=== PATIENT | female | born 1975 | race Caucasian/White ===

== ENCOUNTER 2017-04-04 11:33 | Inpatient (IN) | payer SELFPAY ==
[2017-04-04] MEDS: Lactated Ringers 1,000 ML 50 ML IV (11:45)
[2017-04-04 11:52] VITALS: BMI 27.4
[2017-04-04] MEDS: Oxytocin 30 units/NS 500 ml 30 UNITS/500 ML IV.SOLN IV (12:13)
[2017-04-04] MEDS: Oxytocin 30 units/NS 500 ml 30 UNITS/500 ML IV.SOLN 334 UNITS IV (12:14)
[2017-04-04 12:17] LABS: Absolute Neutrophil Count 14.7 X10^3/uL (2.0-7.7); Basophil# 0.01 X10^3/uL; Basophil% 0.1 % (0-1); Hematocrit 35.9 % (37-47); Hemoglobin 11.9 g/dl (12.0-15.0); Mean Corp Hgb Conc 33.1 g/gl (32-36); Mean Corpuscular Hgb 30.8 pg (27.0-32.0); Mean Platelet Vol. 10.7 fl (6.2-12.0); Monocyte# 0.86 X10^3/uL; Monocyte% 5.2 % (0-10); Neutrophil # 14.65 X10^3/uL (2.7-7.7); Neutrophil % 88.5 % (47-70); Platelet Count 236 K/mm3 (150-450); RBC Distribution Width SD 56.6 fl (35.1-43.9); Red Blood Count 3.86 M/mm3 (4.2-5.4); White Blood Count 16.6 K/mm3 (4.4-11.0)
[2017-04-04 12:20] LABS: POSITIVE COUNT NO; POSITIVE DIFFERENTIAL NO; POSITIVE MORPHOLOGY NO
[2017-04-04] MEDS: Oxytocin 30 units/NS 500 ml 30 UNITS/500 ML IV.SOLN 167 UNITS IV (12:34)
[2017-04-04 13:43] LABS: Group B Strep DNA By PCR Negative (Negative); Internal Control PASS; Probe Check PASS; Specimen Processing Control PASS
[2017-04-04 15:06] LABS: Chlamydia Trachomatis by PCR Negative (Negative); Neisserai gonorrhoeae by PCR Negative (Negative); Probe Check PASS; Sample Adequacy Control PASS; Specimen Processing Control PASS
[2017-04-04 15:30] VITALS: BP 106/64; PULSE 80; RESP 18; TEMP 36.6; O2SAT 98
[2017-04-04 20:40] VITALS: BP 103/59; PULSE 70; RESP 18; TEMP 37.3; O2SAT 96
[2017-04-04 23:55] VITALS: BP 113/63; PULSE 64; RESP 18; TEMP 37.1; O2SAT 96
[2017-04-05 03:40] VITALS: BP 108/73; PULSE 66; RESP 18; TEMP 37.2; O2SAT 96
--- NOTE | 2017-04-05 07:09 | PCM.HP.OB ---
(1) Active labor at term Status: Acute (2) malpresentation Status: Acute Qualifiers: malpresentation type: brow Fetus number: single or unspecified fetus Qualified Code(s): O32.3XX0 - Maternal care for face, brow and chin presentation, not applicable or unspecified (3) Late care Status: Acute (4) Grand multipara in labor Status: Acute (5) History of stillbirth in currently patient Status: Acute History Date of Admission: 04/04/17 Gestational age: 40.6 History of this : 41 yo @ 40w6 received care by a carpet floor layer apprentice in the community and presented after pushing for 4 1/2 hours at a birthing center. she has a complicated by a previous stillbirth due to abruption at term but otherwise no complications Allergies No Known Allergies Allergy (Verified 04/04/17 13:18) Current Medications Acetaminophen (Tylenol) 1,000 mg PO Q8H PRN PRN PRN Reason: MILD PAIN (1-3/10)/Temp>99.6F Bisacodyl (Dulcolax) 10 mg RECTAL UD PRN PRN Reason: If no BM Lactated Ringer's () 1,000 mls @ 0 mls/hr IV .Q0M MAYLIN PRN Reason: KVO Methylergonovine Maleate (Methergine) 0.2 mg IM X1 PRN PRN Reason: Excess bleeding/uterine atony Naproxen (Naprosyn) 250 - 500 mg PO Q8H PRN PRN PRN Reason: MILD PAIN (1-3/10) Ondansetron HCl (Zofran) 4 mg IV Q8H PRN PRN PRN Reason: Nausea Oxycodone HCl (Oxyir) 5 - 10 mg PO Q4H PRN PRN PRN Reason: MOD-SEVERE PAIN (4-10/10) Senna/Docusate Sodium (Senokot-S, Roxanna-Colace) 1 - 2 tablet PO DAILY PRN PRN PRN Reason: Constipation Simethicone (Mylicon) 80 mg PO PCHS PRN PRN Reason: Indigestion/Stomach pain Zolpidem Tartrate (Ambien (Generic)) 5 mg ORAL QHS PRN PRN PRN Reason: Insomnia Smoking Status: Never smoker Alcohol: None Drug Use: none Number of Fetus(es): 1 - fht 140s moderate variability reactive mild variable occasional toco q 9-12 Review of Systems Constitutional: Denies: Chills, Fever, Weight Change HEENT: Denies: Head Aches, Sinus Congestion, Sinus Drainage Cardiovascular: Denies: Chest Pain, Palpitations Respiratory: Denies: Cough, Shortness of breath at rest, Sputum production Gastrointestinal: Reports: Abdominal Pain, Nausea. Denies: Vomiting Genitourinary: Denies: Dysuria Musculoskeletal: Denies: Joint Pain, Joint Tenderness Skin: Denies: Rash, Wounds Neurological: Denies: Numbness, Tingling, Focal weakness Psychiatric: Denies: Anxiety, Depression, Homicidal Ideations, Suicidal Ideations Hematologic/ Lymphatic: Denies: Easy Bruising, Easy Bleeding Physical Exam Vitals: Vital Signs Temp Pulse Resp BP Pulse Ox 99.0 F 66 18 108/73 96 04/05/17 03:40 04/05/17 03:40 04/05/17 03:40 04/05/17 03:40 04/05/17 03:40 General: Alert, Oriented x3, No apparent distress Cardiovascular: Regular rate Lungs: Normal air movement Abdomen: Gravid, Appropriate for Gestational Age Estimated gestational size: Appropriate for gestational size Presentation: Cephalic Cervix Dilation (cm): 10 Station: -2 Effacement (%): 100 Assessment/Plan Active and Suspected Problems Active labor at term (Acute) malpresentation (Acute) Late care (Acute) Grand multipara in labor (Acute) History of stillbirth in currently patient (Acute) 41 yo @ 40w6d IAL malpresentation arrest of descent prolonged second stage start pitocin, draw labs only essential for pediatrics and indicated for health of mother
--- NOTE | 2017-04-05 07:20 | PCM.OB.VAG ---
(1) Active labor at term Status: Acute (2) malpresentation Status: Acute Qualifiers: malpresentation type: brow Fetus number: single or unspecified fetus Qualified Code(s): O32.3XX0 - Maternal care for face, brow and chin presentation, not applicable or unspecified (3) Late care Status: Acute (4) Grand multipara in labor Status: Acute (5) History of stillbirth in currently patient Status: Acute Vaginal Delivery Maternal Presentation: Active Labor 41 yo presents at 40w6d IAL s/p pushing 4 1/2 hours [facility] and diagnosed with malpresentation Amniotic Membrane Rupture Type: Spontaneous at home Amniotic Fluid Description: Clear Final GEO: 03/29/17 Gestational age: 41 Weeks and 0 Days Date of Procedure: 04/04/17 Pre-Operative Diagnosis: ial prolonged second stage Post-Operative Diagnosis: same plus brow prsentation Surgery/ Procedure Performed: Spontaneous Vaginal Delivery Type of Anesthesia: None Description of Procedure: patient began pushing and a brow presentation was identified and the head was flexed to change position and the head converted to ROP and then with pushing rotated to mane and patient delivered with the next contraction. shoulders delivered afterwards and infant placed on maternal abdomen, delayed cord clamping employed. palcenta delivered intact spontaneously immediately following Presentation: MANE Placental Delivery Description: Spontaneous Placenta Disposition: [facility] Cord Vessel Description: 3 Vessels Cord Entanglement: Around neck x 1, tight Estimated Blood Loss: 100 A gender: Female Episiotomy Description: None Laceration: None Medications given after delivery: IV Pitocin Complications: None
--- NOTE | 2017-04-05 07:24 | OP.PCM_ITS ---
(1) Active labor at term Status: Acute (2) malpresentation Status: Acute Qualifiers: malpresentation type: brow Fetus number: single or unspecified fetus Qualified Code(s): O32.3XX0 - Maternal care for face, brow and chin presentation, not applicable or unspecified (3) Late care Status: Acute (4) Grand multipara in labor Status: Acute (5) History of stillbirth in currently patient Status: Acute Vaginal Delivery Maternal Presentation: Active Labor 41 yo presents at 40w6d IAL s/p [facility] and diagnosed with malpresentation Amniotic Membrane Rupture Type: Spontaneous at home Amniotic Fluid Description: Clear Final GEO: 03/29/17 Gestational age: 41 Weeks and 0 Days Date of Procedure: 04/04/17 Pre-Operative Diagnosis: ial prolonged second stage Post-Operative Diagnosis: same plus brow prsentation Surgery/ Procedure Performed: Spontaneous Vaginal Delivery Type of Anesthesia: None Description of Procedure: patient began pushing and a brow presentation was identified and the head was flexed to change position and the head converted to ROP and then with pushing rotated to mane and patient delivered with the next contraction. shoulders delivered afterwards and infant placed on maternal abdomen, delayed cord clamping employed. palcenta delivered intact spontaneously immediately following Presentation: MANE Placental Delivery Description: Spontaneous Placenta Disposition: [facility] Cord Vessel Description: 3 Vessels Cord Entanglement: Around neck x 1, tight Estimated Blood Loss: 100 A gender: Female Episiotomy Description: None Laceration: None Medications given after delivery: IV Pitocin Complications: None
--- NOTE | 2017-04-05 07:25 | PN.OBGYN_ITS ---
Patient Problems: Active and Suspected Problems Active labor at term (Acute) malpresentation (Acute) Late care (Acute) Grand multipara in labor (Acute) History of stillbirth in currently patient (Acute) Subjective: doing well no complaints - Physical Exam General: Alert, Oriented x3 Vital Signs Temp Pulse Resp BP Pulse Ox 99.0 F 66 18 108/73 96 04/05/17 03:40 04/05/17 03:40 04/05/17 03:40 04/05/17 03:40 04/05/17 03:40 Oxygen Delivery Method Room Air Weight: 155 lb Body Mass Index (BMI) 27.4 Intake and Output for Last 24 Hours 04/03/17 04/04/17 04/05/17 23:59 23:59 23:59 Intake Total 1656 / 1656 Output Total 900 / 900 Balance 756 / 756 Laboratory Tests Past 24 Hrs 04/04/17 04/04/17 04/04/17 11:45 11:45 12:20 WBC 16.6 H RBC 3.86 L Hgb 11.9 L Hct 35.9 L MCV 93.0 MCH 30.8 MCHC 33.1 RDW 17.0 H RDW Differential 56.6 H Plt Count 236 MPV 10.7 Immature Gran % (Auto) 0.200 Neut % (Auto) 88.5 H Lymph % (Auto) 6.0 L Burnett % (Auto) 5.2 Eos % (Auto) 0.0 Baso % (Auto) 0.1 Absolute Neuts (auto) 14.7 H Absolute Lymphs (auto) 1.00 Total Counted Not Reportable Chlam trachomat DNA PCR Negative N.gonorrhoeae DNA (PCR) Negative Group B Strep DNA Specimen Comment Blood Type A POSITIVE Antibody Screen NEGATIVE 04/04/17 12:20 WBC RBC Hgb Hct MCV MCH MCHC RDW RDW Differential Plt Count MPV Immature Gran % (Auto) Neut % (Auto) Lymph % (Auto) Burnett % (Auto) Eos % (Auto) Baso % (Auto) Absolute Neuts (auto) Absolute Lymphs (auto) Total Counted Chlam trachomat DNA PCR N.gonorrhoeae DNA (PCR) Group B Strep DNA Negative Specimen Comment Not Reportable Blood Type Antibody Screen Assessment/Plan Active and Suspected Problems Active labor at term (Acute) malpresentation (Acute) Late care (Acute) Grand multipara in labor (Acute) History of stillbirth in currently patient (Acute) s/p routine care dc home today
--- NOTE | 2017-04-05 07:25 | DCINST_ITS ---
Discharge Diet: No Restrictions Discharge Activity: Return to Normal Activity, May not drive while taking narcotic pain medications., May Shower May resume sexual activity in: 4-6 weeks Additional Activity Instructions:: Nothing in the vagina for 4-6 weeks. You may return to work/school in 6 weeks. Call your doctor if your incision/area has: Continuous Slow Oozing, Sudden Increased Bleeding, Increased Pain/ Swelling, Increased Redness, Foul Smelling Discharge Additional Instructions: If you experience any of the following, contact your healthcare provider. * Bleeding that soaks a pad every hour for 2 hours * Fever 100.4 or higher * Unrelieved incision or abdominal pain * Swelling, redness, discharge or bleeding from your incision or episiotomy site * Your incision begins to separate * Problems urinating (including inability to urinate or burning while urinating) . * Visual changes * Severe headache * Flu-like symptoms * Pain or redness in one of both of your breasts * Pain, warmth, tenderness or swelling in your legs, especially the calf area * Frequent nausea and vomiting * Symptoms of depression or anxiety If you experience any of the following, call 911 or go to the nearest Emergency Room. * Chest pain * Problems breathing * Seizure activity * Partial or complete paralysis of a body part, slurred speech, weakness or drooping of the face, or a sudden inability to walk or hold your balance Allergies/Adverse Reactions: Allergies No Known Allergies Allergy (Verified 04/04/17 13:18) When: Call to make an appointment with your doctor in 6 weeks. If you had elevated Blood Pressure or 4th degree laceration you will need to be seen in 2 weeks.
--- NOTE | 2017-04-05 07:25 | PCM.DCVAG ---
Discharge Diet: No Restrictions Discharge Activity: Return to Normal Activity, May not drive while taking narcotic pain medications., May Shower May resume sexual activity in: 4-6 weeks Additional Activity Instructions:: Nothing in the vagina for 4-6 weeks. You may return to work/school in 6 weeks. Call your doctor if your incision/area has: Continuous Slow Oozing, Sudden Increased Bleeding, Increased Pain/ Swelling, Increased Redness, Foul Smelling Discharge Additional Instructions: If you experience any of the following, contact your healthcare provider. Bleeding that soaks a pad every hour for 2 hours Fever 100.4 or higher Unrelieved incision or abdominal pain Swelling, redness, discharge or bleeding from your incision or episiotomy site Your incision begins to separate Problems urinating (including inability to urinate or burning while urinating). Visual changes Severe headache Flu-like symptoms Pain or redness in one of both of your breasts Pain, warmth, tenderness or swelling in your legs, especially the calf area Frequent nausea and vomiting Symptoms of depression or anxiety If you experience any of the following, call 911 or go to the nearest Emergency Room. Chest pain Problems breathing Seizure activity Partial or complete paralysis of a body part, slurred speech, weakness or drooping of the face, or a sudden inability to walk or hold your balance Allergies/Adverse Reactions: Allergies No Known Allergies Allergy (Verified 04/04/17 13:18) When: Call to make an appointment with your doctor in 6 weeks. If you had elevated Blood Pressure or 4th degree laceration you will need to be seen in 2 weeks.
[2017-04-05 10:00] VITALS: BP 89/56; PULSE 66; RESP 18; TEMP 37.2
--- NOTE | 2017-04-05 15:43 | NURSING ---
1345 Discharged to home via wheelchair to car. States she is ready to go home and is able to care for herself and her baby.
== END 2017-04-05 13:45 | disposition home or self-care (01) | DRG 775 ==
PROVIDERS: Admitting Provider Obstetrics & Gynecology; Visit Provider Obstetrics & Gynecology
DX: O32.3XX0 Maternal care for face, brow and chin presentation, not applicable or unspecified (principal); O09.293 Supervision of pregnancy with other poor reproductive or obstetric history, third trimester; O62.1 Secondary uterine inertia; O69.1XX0 Labor and delivery complicated by cord around neck, with compression, not applicable or unspecified; O48.0 Post-term pregnancy; Z3A.40 40 weeks gestation of pregnancy; Z37.0 Single live birth; O09.523 Supervision of elderly multigravida, third trimester; O09.33 Supervision of pregnancy with insufficient antenatal care, third trimester
CPT/HCPCS: 59050; 85025; 86850; 86900; 87081; 87491; 87591; 87653; 99218; J7120; G0378